=== PATIENT | female | born 1975 | race African-American/Black ===

== ENCOUNTER 2017-03-02 06:01 | Emergency (ER) | payer SELFPAY ==
[2017-03-02 06:06] VITALS: BMI 32.5
[2017-03-02] MEDS ORDERED: CATAPRES TAB 0.2 MG PO ONE (06:23)
[2017-03-02] MEDS ORDERED: CATAPRES TAB 0.2 MG ONE (06:26)
[2017-03-02] MEDS ORDERED: NEO SYNEPHRINE ENOSTRIL ONE (06:29)
[2017-03-02] MEDS ORDERED: AFRIN NASAL SPRAY ONE (06:29)
--- NOTE | 2017-03-02 07:14 | DR.GENAD ---
HPI - PCP Primary Care Physician: khanna newton - HPI Comment HPI Comment: NOSE BLEED FOR FEW HOURS NOW AND IS NOT STOPPING. SHE TOOK HER BP MED WHEN BLEEDING STARTED BP WA ELEVATED. BP HIGH IN ED NOW. - Complaint/Symptoms Chief Complaint Doctors Comments: BILATERAL NOSE BLEED, ELEVATED BP. Chief Complaint:: patient stated that her nose started bleeding around 4 hours ago and wont stop. she stated she took her bp meds around 5 hours ago. 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 - Family History History of Family Medical Conditions: Yes Family Medical History: Cancer, Heart Failure, Hypertension - Social History Does patient currently use any type of tobacco product: No Have you used tobacco products in the last 12 months: No Type of Tobacco Use: None Does any household member use tobacco: No Alcohol Use: None Do you use any recreational Drugs:: No Lives With: Family Lives Where: Home - infectious screening In the last 2 months have you had wt loss of >10#?: NO Have you had fever, night sweats or hemotysis?: No Have you traveled outside the country in the last 6 months?: No Isolation: Standard ROS - Review of Systems Constitutional: No Symptoms Reported. negative: Chills, Fever, Weakness, Fatigue Eyes: No Symptoms Reported. negative: Eye Pain, Discharge ENTM: Epistaxis (BILATERAL), Nose Congestion (SLIGHT CONGESTION.BLOOG COMING OUT OF MOUTH.). negative: Ear Pain Respiratoy: negative: Short of Breath, Wheezing, Hemoptysis Cardiovascular: No Symptoms Reported Gastrointestinal/Abdominal: Nausea, Vomiting Genitourinary: No Symptoms Reported Neurological: No Symptoms Reported Musculoskeletal: No Symptoms Reported Integumentary: No Symptoms Reported Hematologic/Lymphatic: No Symptoms Reported Endocrine: No Symptoms Reported All Other Systems: Reviewed and Negative PE - Vital Signs Vitals: Temperature 98.6 F Pulse Rate [Right Brachial] 80 Pulse Rate 94 Respiratory Rate 16 Blood Pressure [Right Arm] 141/84 Blood Pressure [Left Arm] 185/110 Blood Pressure 213/147 O2 Sat by Pulse Oximetry 100 - General Limitations: No Limitations General Appearance: Alert - Head Head Exam: Normal Inspection - Eyes Eye exam: Normal Appearance - ENT ENT Exam: Normal Oropharynx (BLOOD IN MOUTH WITH CLOTS.), Normal External Ear Exam External Ear Exam: Normal External Inspection TM/Canal Exam: Bilateral Normal Nose Exam: Normal Nose Exam, Other (NASAL MUSOSAL NOT INFLAME.). negative: Sinus Tenderness, Nasal Deviation, Septal Hematoma, Laceration, Abrasion Mouth Exam: Normal Inspection Throat Exam: Normal Inspection - Neck Neck Exam: Trachea Midline. negative: Tenderness, Meningismus, Lymphadenopathy - Chest Chest Inspection: Symmetric Chest Wall Rise - Respiratory Respiratory Exam: Normal Lung Sounds Bilat Respiratory Exam: Bilateral Clear to Auscultation - Cardiovascular Cardiovascular Exam: Regular Rate, Normal Rhythm, Normal Heart Sounds - Abdominal Exam Abdominal Exam: Normal Inspection, Normal Bowel Sounds. negative: Tenderness - Extremities Extremities Exam: Normal Inspection - Back Back Exam: Normal Inspection - Neurologic Neurological Exam: Alert - Psychiatric Psychiatric Exam: Normal Affect, Normal Mood - Skin Skin Exam: Normal Color MDM - Differential Diagnosis Differential Diagnosis: EPISTAXIS, HYPERTENSION. Course - Treatment Treatment: SEE ORDERS. NEOSENEPHRIN DROPS BOTH NOSTRIL. BLEEDING IMPROVE. BP DECREASING WITH CLONIDINE 0.2MG. - Reevaluation 1st: Improved - Education/Counseling Education/Counseling: Patient, Education Educated On: Treatment, Diagnosis, Needs for Follow Up ROR - Labs Reviewed Laboratory Results Reviewed?: Yes Result Diagrams: 03/02/17 07:30 03/02/17 07:30 Laboratory: WBC 5.0 X10^3/uL (3.6-10.0) 03/02/17 07:30 RBC 4.83 X10^6/uL (3.5-5.4) 03/02/17 07:30 Hgb 11.3 g/dL (12.0-16.0) L 03/02/17 07:30 Hct 34.2 % (36.0-47.0) L 03/02/17 07:30 MCV 70.8 fL (80.0-100.0) L 03/02/17 07:30 MCH 23.3 pg (27.0-34.0) L 03/02/17 07:30 MCHC 33.0 g/dL (33.0-35.0) 03/02/17 07:30 RDW 17.8 % (11.6-16.5) H 03/02/17 07:30 Plt Count 274 X10^3/uL (150.0-450.0) 03/02/17 07:30 Plt Count Comment Adequate (ADEQUATE) 03/02/17 07:30 MPV 8.4 fL (7.4-11.0) 03/02/17 07:30 Neut % 59.8 % (42.0-75.0) 03/02/17 07:30 Lymph % 28.6 % (21.0-51.0) 03/02/17 07:30 Twiggs % 8.6 % (0.0-13.0) 03/02/17 07:30 Eos % 2.2 % (0.9-2.9) 03/02/17 07:30 Baso % 0.8 % (0.2-1.0) 03/02/17 07:30 Neut # 3.0 x10^3/uL (2.2-4.8) 03/02/17 07:30 Lymph # 1.4 X10^3/uL (1.3-2.9) 03/02/17 07:30 Twiggs # 0.4 x10^3/uL (0.3-0.8) 03/02/17 07:30 Eos # 0.1 x10^3/uL (0.0-0.2) 03/02/17 07:30 Baso # 0.0 X10^3/uL (0.0-0.1) 03/02/17 07:30 Absolute Nucleated RBC 0.0 /100WBC 03/02/17 07:30 Plt Morphology Comment Normal (NORMAL) 03/02/17 07:30 RBC Morphology Abnormal (NORMAL) A 03/02/17 07:30 Hypochromasia 1+ A 03/02/17 07:30 Anisocytosis Slight A 03/02/17 07:30 Microcytosis Slight A 03/02/17 07:30 INR Target Range - 03/02/17 07:30 INR 1.02 (0.8-1.3) 03/02/17 07:30 PTT 31.5 SECONDS (22.9-36.5) 03/02/17 07:30 PTT Comment - 03/02/17 07:30 Sodium 141 mmol/L (136-145) 03/02/17 07:30 Corrected Sodium TNP 03/02/17 07:30 Potassium 4.2 mmol/L (3.5-5.1) 03/02/17 07:30 Chloride 107 mmol/L (98-107) 03/02/17 07:30 Carbon Dioxide 27.1 mmol/L (21-32) 03/02/17 07:30 BUN 32 mg/dL (7-18) H 03/02/17 07:30 Creatinine 1.36 mg/dL (0.55-1.02) H 03/02/17 07:30 Est GFR (MDRD) Af Amer 55 (>60) L 03/02/17 07:30 Est GFR (MDRD) Non-Af 46 (>60) L 03/02/17 07:30 Glucose 106 mg/dL (65-99) H 03/02/17 07:30 Calcium 8.6 mg/dL (8.5-10.1) 03/02/17 07:30 Corrected Calcium 9.2 mg/dL (8.5-10.1) 03/02/17 07:30 Total Bilirubin 0.60 mg/dL (0.2-1.0) 03/02/17 07:30 AST 16 Units/L (15-37) 03/02/17 07:30 ALT 20 Units/L (12-78) 03/02/17 07:30 Alkaline Phosphatase 85 Units/L (46-116) 03/02/17 07:30 Total Protein 7.7 g/dL (6.4-8.2) 03/02/17 07:30 Albumin 3.3 g/dL (3.4-5.0) L 03/02/17 07:30 Globulin 4.4 g/dL (2.5-4.5) 03/02/17 07:30 Albumin/Globulin Ratio 0.8 Ratio (1.1-2.1) L 03/02/17 07:30 - Diagnosis Discharge Problem: Epistaxis Hypertension Qualifiers: Hypertension type: essential hypertension Qualified Code(s): I10 - Essential ( primary) hypertension - Discharge Plan Disposition: 01 HOME, SELF-CARE Condition: Stable Prescriptions: Clonidine HCl [CATAPRES 0.1 MG TAB *] 0.1 mg PO DAILY PRN #30 tab PRN Reason: - Follow ups/Referrals Follow ups/Referrals: NFD,None [Primary Care Provider] - 2 days - Instructions Instructions: Nosebleed, [id number], Hypertension Additional Instructions: RETURN TO ED IF WORSE. SEE ENT THIS WEEK.
[2017-03-02 07:46] LABS: BASOPHILS % (AUTO) 0.8 % (0.2-1.0); EOSINOPHILS # (AUTO) 0.1 x10^3/uL (0.0-0.2); EOSINOPHILS % (AUTO) 2.2 % (0.9-2.9); HEMATOCRIT 34.2 % (36.0-47.0); HEMOGLOBIN 11.3 g/dL (12.0-16.0); LYMPHOCYTES # (AUTO) 1.4 X10^3/uL (1.3-2.9); LYMPHOCYTES % (AUTO) 28.6 % (21.0-51.0); MEAN CORPUSCULAR HEMOGLOBIN 23.3 pg (27.0-34.0); MEAN CORPUSCULAR VOLUME 70.8 fL (80.0-100.0); MEAN PLATELET VOLUME 8.4 fL (7.4-11.0); MONOCYTES # (AUTO) 0.4 x10^3/uL (0.3-0.8); MONOCYTES % (AUTO) 8.6 % (0.0-13.0); NEUTROPHILS % (AUTO) 59.8 % (42.0-75.0); PLATELET COUNT 274 X10^3/uL (150.0-450.0); RED BLOOD COUNT 4.83 X10^6/uL (3.5-5.4); RED CELL DISTRIBUTION WIDTH 17.8 % (11.6-16.5)
[2017-03-02 07:52] VITALS: BP 141/84
[2017-03-02 07:54] LABS: ALANINE AMINOTRANSFERASE 20 Units/L (12-78); ALBUMIN 3.3 g/dL (3.4-5.0); ALKALINE PHOSPHATASE 85 Units/L (46-116); ANISOCYTOSIS SLIGHT; ASPARTATE AMINO TRANSFERASE 16 Units/L (15-37); BLOOD UREA NITROGEN 32 mg/dL (7-18); CALCIUM 8.6 mg/dL (8.5-10.1); CARBON DIOXIDE 27.1 mmol/L (21-32); CHLORIDE 107 mmol/L (98-107); COR CA(FOR HYPOALB) 9.2 mg/dL (8.5-10.1); CREATININE 1.36 mg/dL (0.55-1.02); GLUCOSE 106 mg/dL (65-99); HYPOCHROMASIA 1+; MICROCYTOSIS SLIGHT; PLATELET MORPHOLOGY COMMENT NORMAL (NORMAL); SODIUM 141 mmol/L (136-145); TOTAL PROTEIN 7.7 g/dL (6.4-8.2); eGFR BLACK RACES 55 (>60); eGFR NON BLACK RACES 46 (>60)
== END 2017-03-02 08:29 | disposition home or self-care (01) ==
LOC: ER 06:01
DX: R04.0 Epistaxis (principal); I10 Essential (primary) hypertension
CPT/HCPCS: 36415; 80053; 85025; 85610; 85730; 99282

== ENCOUNTER 2017-10-10 09:00 | Emergency (ER) | payer OTHER ==
[2017-10-10 09:08] VITALS: BMI 32.5
[2017-10-10] MEDS ORDERED: CATAPRES TAB 0.2 MG PO ONE (09:22)
--- NOTE | 2017-10-10 09:30 | DR.URIAD ---
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 Low grade fever. Pt found to have high BP during triage, out of HCTZ x 1 month. Known HTN Chief Complaint:: PT C/O SORE THOROAT AND COUGHING AND CHILLS THAT STARTED ON YESTERDAY ..... PT STATES " I JUST DON'T FELL WELL". PT C/O THAT HER THROAT FEELS RAW.. 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 - Family History History of Family Medical Conditions: No Family Medical History: Cancer, Heart Failure, Hypertension - Social History Does patient currently use any type of tobacco product: No Have you used tobacco products in the last 12 months: No Type of Tobacco Use: None Does any household member use tobacco: No Alcohol Use: None Do you use any recreational Drugs:: No Lives With: Family Lives Where: Home - infectious screening In the last 2 months have you had wt loss of >10#?: NO Have you had fever, night sweats or hemotysis?: No Have you traveled outside the country in the last 6 months?: No Isolation: Standard ROS - Review of Systems Constitutional: Chills, Fever, Malaise, Fatigue Eyes: No Symptoms Reported ENTM: Nose Congestion, Throat Pain Respiratoy: See HPI, Non-Productive Cough Cardiovascular: negative: Chest Pain, Edema, Palpitations Gastrointestinal/Abdominal: negative: Abdominal Pain, Constipation, Diarrhea Genitourinary: No Symptoms Reported Neurological: Headache Musculoskeletal: Joint Pain (diffuse aches and pains), Muscle Pain Hematologic/Lymphatic: No Symptoms Reported Endocrine: No Symptoms Reported Psychiatric: No Symptoms Reported All Other Systems: Reviewed and Negative PE - Vital Signs Vitals: Temperature 97.2 F Pulse Rate [Left Brachial] 75 Pulse Rate 80 Respiratory Rate 18 Blood Pressure [Right Arm] 188/114 Blood Pressure [Left Arm] 187/116 Blood Pressure 232/120 O2 Sat by Pulse Oximetry 97 - General Limitations: No Limitations General Appearance: In No Apparent Distress - Head Head Exam: Normal Inspection - Eyes Eye exam: Normal Appearance. negative: Conjunctival Injection - ENT ENT Exam: Mucous Membranes Moist, Other (frontal and max sinuses +TTP) External Ear Exam: Normal External Inspection Nose Exam: Normal Nose Exam Throat Exam: Tonsillar Erythema. negative: Tonsillar Exudate - Neck Neck Exam: Normal Inspection, Full ROM, Trachea Midline. negative: Lymphadenopathy - Chest Chest Inspection: Normal Inspection, Symmetric Chest Wall Rise - Respiratory Respiratory Exam: Normal Lung Sounds Bilat Respiratory Exam: Bilateral Clear to Auscultation - Cardiovascular Cardiovascular Exam: Regular Rate, Normal Rhythm - Abdominal Exam Abdominal Exam: Normal Bowel Sounds, Soft. negative: Tenderness - Extremeties Extremities Exam: Normal Inspection, Full ROM, Normal Capillary Refill. negative: Edema - Neurologic Neurological Exam: Alert, Oriented X3 - Psychiatric Psychiatric Exam: Normal Affect, Normal Mood - Skin Skin Exam: Warm, Dry ROR - Labs Reviewed Laboratory: Influenza Type A (PCR) Negative (NEGATIVE) 10/10/17 09:49 Influenza Type B (PCR) Negative (NEGATIVE) 10/10/17 09:49 Streptococcus Screen Negative (NEGATIVE) 10/10/17 09:49 - Other Results Comments: flu and strep both negative - Diagnosis Discharge Problem: Uncontrolled hypertension, Sinusitis, acute - Discharge Plan Disposition: 01 HOME, SELF-CARE Condition: Stable - Follow ups/Referrals Follow ups/Referrals: NFD,None [Primary Care Provider] - 3 days - Instructions Instructions: Hypertension, [id number] Additional Instructions: follow up regular doctor in 1-2 days for BP recheck
[2017-10-10] MEDS ORDERED: CATAPRES TAB 0.2 MG ONE (09:41)
[2017-10-10] MEDS ORDERED: PROCARDIA XL PO ONE (11:05)
[2017-10-10 13:25] VITALS: BP 187/116
== END 2017-10-10 13:25 | disposition home or self-care (01) ==
LOC: ER 09:18
DX: I10 Essential (primary) hypertension (principal)
CPT/HCPCS: 87070; 87502; 87880; 99282

== ENCOUNTER 2021-10-25 12:58 | Observation (INO) ==
[2021-10-25] MEDS ORDERED: CATAPRES TAB 0.2 MG PO ONE (13:28)
--- NOTE | 2021-10-25 13:29 | DR.URIAD ---
HPI Time Seen Time Seen by Provider: 10/25/21 13:16 Complaint Chief Complaint Doctors Comments: PATIENT IS 46YR OLD FEMALE IN ER WITH RIGHT SIDED CHEST PAIN AND COUGH SINCE LAST NIGHT. PAIN IS SHARP, 7/10 RADIATING TO THE BACK. PAIN ASSOCIATED WITH SOB. NO FEVER, VOMITING, DIARRHEA OR DYSURIA. WORSE TODAY. BP ELEVATED. DENIES HEADACHE OR DIZZINESS. Chief Complaint:: RIGHT SIDED CHEST PAIN WITH COUGH SINCE LAST NIGHT. BP MARKEDLY ELEVATED IN TRIAGE. COVID-19 Coronavirus risk:travel/contact w/high risk person: No Has patient experienced Coronavirus symptoms: Yes Coronavirus symptoms experienced: Coughing Reviewed Nurses Notes Reviewed: Yes Source History Provided: Patient Mode of Arrival Mode of Arrival: Ambulatory Context Recent Treated Infections: None History of Respiratory: None Quality Quality of Cough: Productive and Yellow Rhinorrhea: None Shortness of Breath: Moderate Associated Signs and Symptoms Other Signs and Symptoms: Accessory Muscle Use, Cough, Nasal Symptoms, Shortness of Breath, URI and Wheeze PMH PMH Past Medical History: Hypertension and Hypothyroidism Past Surgical History: Yes 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 Family History Family Medical History: Cancer, Heart Failure and Hypertension Social History Do you use any recreational Drugs:: No Travel Risk Coronavirus risk:travel/contact w/high risk person: No Has patient experienced Coronavirus symptoms: Yes Coronavirus symptoms experienced: Coughing ROS Review of Systems Constitutional: See HPI, Weakness and Fatigue; negative Fever Eyes: No Symptoms Reported and See HPI ENTM: See HPI and Nose Congestion; negative Nose Discharge Respiratoy: See HPI, Productive Cough (GRE[place] SPUTUM.), Short of Breath and Wheezing Cardiovascular: See HPI, Chest Pain and Edema Gastrointestinal/Abdominal: No Symptoms Reported and See HPI; negative Abdominal Pain, Diarrhea and Vomiting Genitourinary: No Symptoms Reported and See HPI; negative Dysuria, Frequency and Hematuria Neurological: See HPI and Weakness; negative Headache and Dizziness Musculoskeletal: No Symptoms Reported and See HPI; negative Back Pain and Muscle Pain Integumentary: No Symptoms Reported and See HPI; negative Rash and Juandice Hematologic/Lymphatic: No Symptoms Reported and See HPI; negative Easy Bleeding and Easy Bruising Endocrine: No Symptoms Reported and See HPI; negative Increased Thirst and Increased Urine Psychiatric: No Symptoms Reported and See HPI All Other Systems: Reviewed and Negative PE Vital Signs Vitals: Temperature 98.7 F Pulse Rate [Right Radial] 87 Pulse Rate 93 Respiratory Rate 20 Blood Pressure [Right Arm] 222/131 Blood Pressure [Left Arm] 158/90 Blood Pressure 204/130 O2 Sat by Pulse Oximetry 99 General Limitations: No Limitations General Appearance: Alert and In Distress Head Head Exam: Normal Inspection Eyes Eye exam: Normal Appearance; negative Scleral Icterus and Conjunctival Injection ENT ENT Exam: Normal Exam, Normal Oropharynx, Normal External Ear Exam and TM's Normal Bilaterally External Ear Exam: Normal External Inspection; negative Mastoid Tenderness TM/Canal Exam: Bilateral: Normal Nose Exam: Normal Nose Exam Mouth Exam: Normal Inspection; negative Lip Swelling and Tongue Swelling Throat Exam: Normal Inspection; negative Tonsillar Erythema, Tonsillomegaly and Tonsillar Exudate Neck Neck Exam: Normal Inspection and Trachea Midline; negative Tenderness Chest Chest Inspection: Normal Inspection and Symmetric Chest Wall Rise; negative Tenderness Respiratory Respiratory Exam: Normal Lung Sounds Bilat and Respiratory Distress; negative Accessory Muscle Use and Chest Wall Tenderness Respiratory Exam: Bilateral: Wheezing and Bilateral: Rhonchi and Lower: Wheezing and Lower: Rhonchi Cardiovascular Cardiovascular Exam: Regular Rate, Normal Rhythm and Normal Heart Sounds; negative Systolic Murmur and Diastolic Murmur Abdominal Exam Abdominal Exam: Normal Inspection, Normal Bowel Sounds and Soft; negative Tenderness Extremeties Extremities Exam: Edema; negative Tenderness Back Back Exam: Normal Inspection; negative (R) CVA Tenderness and (L) CVA Tenderness Neurologic Neurological Exam: Alert and Oriented X3; negative Motor Sensory Deficit Psychiatric Psychiatric Exam: Normal Affect and Normal Mood Skin Skin Exam: Warm, Dry, Intact and Normal Color MDM Differential Diagnosis Differential Diagnosis: Pneumonia (CHF, SC, BRONCHITIS, HYPERTENSIVE EMERGENCY.) COURSE Treatment Treatment: SEE ORDERS. CLONIDINE 0.2MG PO IN ER. BP STILL ELEVATED. LASIX 40MG IV. PATIENT DIURESING. HYDRALAZINE 10MG IV, BP DECREASING. PATIENT STILL SOB. Reevaluation 1st: Improved 2nd: Improved Consultation Consultation Comments: DISCUSSED PATIENT WITH DR. TRAVIS. HE WILL ADMIT PATIENT. Education/Counseling Education/Counseling: Patient Educated On: Diagnosis ROR Labs Reviewed Laboratory Results Reviewed?: Yes Result Diagrams: 10/27/21 05:19 10/27/21 05:19 Laboratory: WBC 6.3 X10^3/uL (3.6-10.0) 10/25/21 13:38 RBC 4.23 X10^6/uL (3.5-5.4) 10/25/21 13:38 Hgb 9.8 g/dL (12.0-16.0) L 10/25/21 13:38 Hct 29.9 % (36.0-47.0) L 10/25/21 13:38 MCV 70.6 fL (80.0-100.0) L 10/25/21 13:38 MCH 23.3 pg (27.0-34.0) L 10/25/21 13:38 MCHC 32.9 g/dL (33.0-35.0) L 10/25/21 13:38 RDW 19.6 % (11.6-16.5) H 10/25/21 13:38 Plt Count 310 X10^3/uL (150.0-450.0) 10/25/21 13:38 Plt Count Comment Adequate (ADEQUATE) 10/25/21 13:38 MPV 8.2 fL (7.4-11.0) 10/25/21 13:38 Neut % (Auto) 70.7 % (42.0-75.0) 10/25/21 13:38 Lymph % (Auto) 19.8 % (21.0-51.0) L 10/25/21 13:38 Summers % (Auto) 5.5 % (0.0-13.0) 10/25/21 13:38 Eos % (Auto) 3.7 % (0.9-2.9) H 10/25/21 13:38 Baso % (Auto) 0.3 % (0.2-1.0) 10/25/21 13:38 Neut # (Auto) 4.5 x10^3/uL (2.2-4.8) 10/25/21 13:38 Lymph # (Auto) 1.2 X10^3/uL (1.3-2.9) L 10/25/21 13:38 Summers # (Auto) 0.3 x10^3/uL (0.3-0.8) 10/25/21 13:38 Eos # (Auto) 0.2 x10^3/uL (0.0-0.2) 10/25/21 13:38 Baso # (Auto) 0.0 X10^3/uL (0.0-0.1) 10/25/21 13:38 Absolute Nucleated RBC 0.1 /100WBC 10/25/21 13:38 Plt Morphology Comment Normal (NORMAL) 10/25/21 13:38 RBC Morphology Abnormal (NORMAL) A 10/25/21 13:38 Hypochromasia 1+ A 10/25/21 13:38 Anisocytosis Slight A 10/25/21 13:38 Microcytosis Slight A 10/25/21 13:38 Sodium 138 mmol/L (136-145) 10/25/21 13:38 Corrected Sodium TNP 10/25/21 13:38 Potassium 3.4 mmol/L (3.5-5.1) L 10/25/21 13:38 Chloride 104 mmol/L (98-107) 10/25/21 13:38 Carbon Dioxide 29.3 mmol/L (21-32) 10/25/21 13:38 BUN 25 mg/dL (7-18) H 10/25/21 13:38 Creatinine 1.72 mg/dL (0.55-1.02) H 10/25/21 13:38 Est GFR (MDRD) Af Amer 41 (>60) L 10/25/21 13:38 Est GFR (MDRD) Non-Af 34 (>60) L 10/25/21 13:38 Glucose 104 mg/dL (65-99) H 10/25/21 13:38 Calcium 8.7 mg/dL (8.5-10.1) 10/25/21 13:38 Corrected Calcium TNP 10/25/21 13:38 Total Bilirubin 0.90 mg/dL (0.2-1.0) 10/25/21 13:38 AST 28 Units/L (15-37) 10/25/21 13:38 ALT 69 Units/L (12-78) 10/25/21 13:38 Alkaline Phosphatase 103 Units/L (46-116) 10/25/21 13:38 Creatine Kinase 70 Units/L (26-192) 10/25/21 13:38 CK-MB (CK-2) 1.4 ng/mL (0-4.0) 10/25/21 13:38 CK/CKMB % Calc 2.0 % (<4) 10/25/21 13:38 Troponin I High Sens 46.7 ng/L (4.0-60.0) 10/25/21 13:38 B-Natriuretic Peptide 737 pg/mL (0-79) H* 10/25/21 13:38 Total Protein 7.3 g/dL (6.4-8.2) 10/25/21 13:38 Albumin 3.4 g/dL (3.4-5.0) 10/25/21 13:38 Globulin 3.9 g/dL (2.5-4.5) 10/25/21 13:38 Albumin/Globulin Ratio 0.9 Ratio (1.1-2.1) L 10/25/21 13:38 SARS CoV-2 RNA Rapid MAVERICK Negative (NEGATIVE) 10/25/21 19:22 XRAY XRAY Interpreted by: Radiologist (REPORT NOTED AND DISCUSSED WITH PATIENT.) and Self EKG Rate: 90 Embarrass: Normal Rhythm: PACs Block: None Hypertrophy: LAE ST: Ischemia Opioid Opioid Risk Tool Age (Johnny box if 16-45): No Total: 0 Total Score Risk Category: Low Risk Copyright: Hollis [employer] predicting aberrant behaviors Diagnosis Discharge Problem: Hypertension Qualifiers: Hypertension type: primary hypertension Qualified Code(s): I10 - Essential (primary) hypertension CHF (congestive heart failure) Qualifiers: Heart failure type: combined systolic and diastolic Heart failure chronicity: unspecified Qualified Code(s): I50.40 - Unspecified combined systolic (congestive) and diastolic (congestive) heart failure Chest pain Qualifiers: Chest pain type: intercostal pain Qualified Code(s): R07.82 - Intercostal pain
[2021-10-25] MEDS ORDERED: CATAPRES TAB 0.2 MG ONE (13:41)
[2021-10-25 13:46] LABS: BASOPHILS % (AUTO) 0.3 % (0.2-1.0); EOSINOPHILS # (AUTO) 0.2 x10^3/uL (0.0-0.2); EOSINOPHILS % (AUTO) 3.7 % (0.9-2.9); HEMATOCRIT 29.9 % (36.0-47.0); HEMOGLOBIN 9.8 g/dL (12.0-16.0); LYMPHOCYTES # (AUTO) 1.2 X10^3/uL (1.3-2.9); LYMPHOCYTES % (AUTO) 19.8 % (21.0-51.0); MEAN CORPUSCULAR HEMOGLOBIN 23.3 pg (27.0-34.0); MEAN CORPUSCULAR HGB CONC 32.9 g/dL (33.0-35.0); MEAN CORPUSCULAR VOLUME 70.6 fL (80.0-100.0); MEAN PLATELET VOLUME 8.2 fL (7.4-11.0); MONOCYTES # (AUTO) 0.3 x10^3/uL (0.3-0.8); MONOCYTES % (AUTO) 5.5 % (0.0-13.0); NEUTROPHILS # (AUTO) 4.5 x10^3/uL (2.2-4.8); NEUTROPHILS % (AUTO) 70.7 % (42.0-75.0); RED BLOOD COUNT 4.23 X10^6/uL (3.5-5.4); RED CELL DISTRIBUTION WIDTH 19.6 % (11.6-16.5); WHITE BLOOD COUNT 6.3 X10^3/uL (3.6-10.0)
[2021-10-25 14:14] LABS: ALANINE AMINOTRANSFERASE 69 Units/L (12-78); ALBUMIN 3.4 g/dL (3.4-5.0); ALKALINE PHOSPHATASE 103 Units/L (46-116); ASPARTATE AMINO TRANSFERASE 28 Units/L (15-37); BLOOD UREA NITROGEN 25 mg/dL (7-18); CALCIUM 8.7 mg/dL (8.5-10.1); CARBON DIOXIDE 29.3 mmol/L (21-32); CHLORIDE 104 mmol/L (98-107); CREATINE KINASE 70 Units/L (26-192); CREATINE KINASE MB 1.4 ng/mL (0-4.0); CREATININE 1.72 mg/dL (0.55-1.02); SODIUM 138 mmol/L (136-145); TOTAL PROTEIN 7.3 g/dL (6.4-8.2); eGFR NON BLACK RACES 34 (>60)
[2021-10-25 14:18] LABS: PLATELET MORPHOLOGY COMMENT NORMAL (NORMAL)
[2021-10-25 14:19] LABS: ANISOCYTOSIS SLIGHT; HYPOCHROMASIA 1+; MICROCYTOSIS SLIGHT
[2021-10-25] MEDS ORDERED: LASIX IVP ONE ×2 (14:36→15:28)
[2021-10-25] MEDS ORDERED: KLOR-CON PO ONE (14:37)
[2021-10-25] MEDS ORDERED: K-DUR TAB 20 MEQ PO ONE (15:29)
--- NOTE | 2021-10-25 15:46 | RAD ---
Chest AP portableIndication: Chest painFINDINGSThere is no pneumothorax or effusion. There is cardiomegaly. Monitor leads obscure minimal detail.IMPRESSIONCardiomegaly with few increased interstitial markings. Pulmonary venous hypertension noted. Cardiac dysfunction not excluded, without severe edema.Electronically signed by: POLA ARIAS (Oct 25, 2021 15:45:11)
[2021-10-25] MEDS ORDERED: APRESOLINE INJ 20 MG VIAL IVP ONE ×2 (16:37→18:28)
[2021-10-25] MEDS ORDERED: APRESOLINE INJ 20 MG VIAL ONE ×2 (17:02→19:13)
[2021-10-25] MEDS ORDERED: TORADOL 30 MG VIAL IVP ONE (19:11)
[2021-10-25] MEDS ORDERED: TORADOL 30 MG VIAL ONE (19:13)
[2021-10-25] MEDS: APRESOLINE INJ 20 MG VIAL IVP PRN (22:39)
[2021-10-25 23:11] VITALS: BMI 39.4
[2021-10-25 23:26] LABS: BILIRUBIN,URINE NEGATIVE (NEGATIVE); BLOOD/HEMOGLOBIN,URINE NEGATIVE (NEGATIVE); GLUCOSE, URINE NEGATIVE (NEGATIVE); KETONES,URINE NEGATIVE (NEGATIVE); LEUKOCYTE ESTERASE ,URINE NEGATIVE (NEGATIVE); NITRITES,URINE NEGATIVE (NEGATIVE); PH,URINE 6.5 (5.0 - 8.0); PROTEIN,URINE 2+ (NEGATIVE); UROBILINOGEN,URINE NORMAL (NORMAL)
[2021-10-25] MEDS ORDERED: CATAPRES-TTS-3 TD SCH (23:45)
[2021-10-25 23:48] LABS: APPEARANCE,URINE CLEAR (CLEAR); COLOR,URINE STRAW (YELLOW)
[2021-10-25] MEDS ORDERED: CATAPRES-TTS-3 TD ONE (23:48)
[2021-10-25 23:51] LABS: BACTERIA,URINE NEGATIVE /HPF (NEGATIVE); RBC,URINE NONE SEEN /HPF (0-3); SQUAMOUS EPITHELIAL CELL,UR MODERATE /HPF (NEGATIVE)
[2021-10-26 00:54] LABS: CKMB % 1.9 % (<4); CREATINE KINASE MB 1.3 ng/mL (0-4.0)
[2021-10-26] MEDS ORDERED: TYLENOL 325 MG TAB PO PRN (04:01)
[2021-10-26 06:04] LABS: EOSINOPHILS # (AUTO) 0.2 x10^3/uL (0.0-0.2); EOSINOPHILS % (AUTO) 2.7 % (0.9-2.9); HEMOGLOBIN 10.2 g/dL (12.0-16.0)
[2021-10-26] MEDS: APRESOLINE INJ 20 MG VIAL IVP PRN ×3 (06:10→22:50)
[2021-10-26 06:16] LABS: BASOPHILS # (AUTO) 0.1 X10^3/uL (0.0-0.1); HEMATOCRIT 31.4 % (36.0-47.0); LYMPHOCYTES # (AUTO) 1.7 X10^3/uL (1.3-2.9); LYMPHOCYTES % (AUTO) 25.6 % (21.0-51.0); MEAN CORPUSCULAR HEMOGLOBIN 23.2 pg (27.0-34.0); MEAN CORPUSCULAR HGB CONC 32.6 g/dL (33.0-35.0); MEAN CORPUSCULAR VOLUME 71.2 fL (80.0-100.0); MEAN PLATELET VOLUME 8.8 fL (7.4-11.0); MONOCYTES # (AUTO) 0.6 x10^3/uL (0.3-0.8); MONOCYTES % (AUTO) 8.8 % (0.0-13.0); NEUTROPHILS # (AUTO) 4.2 x10^3/uL (2.2-4.8); NEUTROPHILS % (AUTO) 61.9 % (42.0-75.0); RED BLOOD COUNT 4.41 X10^6/uL (3.5-5.4); RED CELL DISTRIBUTION WIDTH 19.7 % (11.6-16.5); WHITE BLOOD COUNT 6.8 X10^3/uL (3.6-10.0)
[2021-10-26 06:43] LABS: ALANINE AMINOTRANSFERASE 64 Units/L (12-78); ALBUMIN 3.4 g/dL (3.4-5.0); ALKALINE PHOSPHATASE 102 Units/L (46-116); ASPARTATE AMINO TRANSFERASE 30 Units/L (15-37); BLOOD UREA NITROGEN 24 mg/dL (7-18); CALCIUM 8.4 mg/dL (8.5-10.1); CARBON DIOXIDE 24.7 mmol/L (21-32); CHLORIDE 103 mmol/L (98-107); CKMB % 2.5 % (<4); CREATINE KINASE 73 Units/L (26-192); CREATINE KINASE MB 1.8 ng/mL (0-4.0); MAGNESIUM 2.2 mg/dL (1.7-2.9); SODIUM 137 mmol/L (136-145); TOTAL PROTEIN 7.4 g/dL (6.4-8.2); eGFR NON BLACK RACES 40 (>60)
[2021-10-26 07:03] LABS: ANISOCYTOSIS SLIGHT; HYPOCHROMASIA 1+; MICROCYTOSIS SLIGHT; PLATELET MORPHOLOGY COMMENT NORMAL (NORMAL); TARGET CELLS SLIGHT
[2021-10-26] MEDS: K-DUR TAB 20 MEQ PO SCH ×2 (09:12→21:05)
[2021-10-26] MEDS: LASIX IVP SCH ×2 (09:12→17:28)
[2021-10-26] MEDS ORDERED: ZESTRIL TAB 10 MG PO SCH (10:00)
--- NOTE | 2021-10-26 10:05 | DR.H&P ---
H&P - History & Physical for Day of: H&P Date: 10/25/21 - Chief Complaint Chief Complaint: CHEST PAIN, COUGH, SOB, LOWER EXTREMITY SWELLING - History of Present Illness History of Present Illness: IS A 46 YEAR OLD BLACK FEMALE. SHE PRESENTED TO THE ER WITH COMPLAINTS OF RIGHT SIDED CHEST PAIN, COUGH, AND LOWER EXTREMITY PAIN/SWELLING. SHE DESCRIBES CHEST PAIN SHARP, INTERMITTENT, AND RATES IT A 7/10. PAIN DOES RADIATE TO THE BACK. THERE IS ALSO ASSOCIATED SHORTNESS OF BREATH. COUGH HAS BEEN PRODUCTIVE OF GREENISH COLORED SPUTUM. SHE ALSO ADMITS TO ELEVATED BLOOD PRESSURE. SHE DENIES HEADACHE, DIZZINESS, VOMITING, DIARRHEA, OR DYSURIA. ON EXAMINATION, PATIENT IS ALSO NOTED TO HAVE NASAL CONGESTION AND WHEEZING OF BILATERAL LUNG KWON TO AUSCULTATION. LOWER EXTREMITIES ARE NOTED WITH 1+ EDEMA. HER PMH INCLUDES HYPERTENSION, HYPOTHYROIDISM, CHOLECYSTECTOMY, AND TOPOGRAPHICAL ENGINEER SURGERY. DESPITE DX OF HTN AND HYPOTHYROIDISM, SHE DENIES TAKING ANY MEDICATIONS AT THIS TIME. ON ARRIVAL TO THE ER, VITALS WERE: 98.7-94-20-97%-222/137. LABS WERE OBTAINED. WBC 6.3, HGB 9.8, HCT 29.9, SODIUM 138, POTASSIUM 3.4, BUN 25, CREATININE 1.72, GLUCOSE 104, BNP 737, TOTAL PROTEIN 7.3, ALBUMIN 3.4. CARDIAC ENZYMES WERE WITHIN NORMAL LIMITS. EKG OBTAINED AND REVEALED: SINUS RHYTHM WITH HR 90. A CHEST XRAY WAS OBTAINED AND REVEALED: Cardiomegaly with few increased interstitial markings. Pulmonary venous hypertension noted. Cardiac dysfunction not excluded, without severe edema. IN THE ER, SHE WAS GIVEN CATAPRES 0.2MG PO X 1, LASIX 40MG IV X 1, KLOR-CON 20MG PO X 1, APRESOLINE 10MG IV X 1, TORADOL 30MG IV X 1. BLOOD PRESSURE REMAINED ELEVATED. A CATAPRES 0.3MG/HR TD PATCH WAS APPLIED. SHE WAS ADMITTED TO THE HOSPITAL FOR FURTHER EVALUATION AND TREATMENT OF HYPERTENSIVE EMERGENCY, CHF, CHEST PAIN, ACUTE BRONCHITIS. SHE WAS STARTED ON LASIX 40MG IV BID, CATAPRES 0.3MG/HR TD PATCH Q7D, K-DUR 20MG PO BID, APRESOLINE 10MG IV Q6H PRN, TYLENOL 650MG PO Q6H PRN. WE WILL OBTAIN AN ECHO, SERIAL CARDIAC ENZYMES AND EKGs, AND VENOUS DOPPLERS OF BLE TO RULE OUT DVT. OTHERWISE, WE PLAN TO FOLLOW UP WITH AM LABS AND COTNINUE TO MONITOR. HER BLOOD PRESSURE ON MORNING ROUNDS WAS 164/90. TIME SPENT ON CLINICAL ASSESSMENT, REVIEWING LABS AND REY GING, DECISION MAKING, AND DOCUMENTATION GREATER THAN 75 MINUTES. - Past Medical History Past Medical History: Hypertension, Hypothyroidism - Past Surgical History Surgical History: Cholecystectomy, TOPOGRAPHICAL ENGINEER Surgery - Family History Family Medical History: Diabetes Mellitus, PA, Hypertension - Social History Does patient currently use any type of tobacco product: No Have you used tobacco products in the last 12 months: No Type of Tobacco Use: None Alcohol Use: None Drug Use: None - Medications Home Medications: No Known Drug Allergies Allergy (Verified 10/25/21 13:05) CONTINUE taking the following medications NK 10/25/21 [History] - Review of Systems Constitutional: No Symptoms Reported Eyes: No Symptoms Reported ENT: No Symptoms Reported Respiratory: See HPI, Cough, Shortness of Breath, SOB with Excertion, Wheezing Cardiovascular: Chest Pain, Edema (LOWER EXTREMITY SWELLING ) Gastrointestinal: No Symptoms Reported Genitourinary: No Symptoms Reported Musculoskeletal: No Symptoms Reported Skin: No Symptoms Reported Neurological: No Symptoms Reported - Physical Exam Vital Signs: Temperature 97.8 F Pulse Rate [Right Radial] 100 Pulse Rate 93 Respiratory Rate 20 Blood Pressure [Right Arm] 164/90 Blood Pressure [Left Arm] 158/90 Blood Pressure 217/133 O2 Sat by Pulse Oximetry 96 Oriented: Normal Eyes: Normal Ear: Normal Nose: Normal Throat: Normal Respiratory: Rhonchi Throughout, Wheezes Throughout Cardiovascular: Edema (BLE 1+ EDEMA ) : Normal Auscultation: Bowel Sounds: Normal Palpation: Normal Tenderness: Normal Skin: Normal Musculoskeletal: Normal Psychiatric: Normal Mood Description: Calm Affect: Normal Speech Pattern: Clear - Assessment/Plan (1) CHF (congestive heart failure) Qualifiers: Heart failure type: combined systolic and diastolic Heart failure chronicity: unspecified Qualified Code(s): I50.40 - Unspecified combined systolic (congestive) and diastolic (congestive) heart failure Status: Acute Plan: ADMIT, LASIX 40MG IV BID, CATAPRES 0.3MG/HR TD PATCH Q7D, K-DUR 20MG PO BID, APRESOLINE 10MG IV Q6H PRN, TYLENOL 650MG PO Q6H PRN. OBTAIN CE & EKG, ECHO, AND VENOUS DOPPLERS (2) Hypertensive emergency Status: Acute (3) Chest pain Qualifiers: Chest pain type: unspecified Qualified Code(s): R07.9 - Chest pain, unspecified Status: Acute (4) Acute bronchitis Qualifiers: Bronchitis organism: unspecified organism Qualified Code(s): J20.9 - Acute bronchitis, unspecified Status: Acute (5) Swelling of lower extremity Status: Acute - Allergies Allergies/Adverse Reactions: Allergies Allergy/AdvReac Type Severity Reaction Status Date / Time No Known Drug Allergies Allergy Verified 10/25/21 13:05
--- NOTE | 2021-10-26 12:19 | VAS ---
HISTORY: [Extremity pain, swelling, and edema]Study: Bilateral lower extremity Doppler venous ultrasound.TECHNIQUE: Multiple christianson scale and color flow Doppler images of the deep venous system were obtained of the [right and left] lower extremity.FINDINGS: The deep venous system of the [right and left lower extremities were] evaluated from the level of the common femoral veins through the popliteal veins, bilaterally. Normal color flow and augmentation can be observed. In addition, normal compression is seen throughout the deep venous system. [No Roper's cyst is seen].IMPRESSION:1. Negative examination for DVT.Electronically signed by: SHAILA MORRIS III (Oct 26, 2021 12:17:38)
[2021-10-26 13:59] LABS: CKMB % 3.9 % (<4); CREATINE KINASE MB 2.9 ng/mL (0-4.0)
[2021-10-26] MEDS ORDERED: ASPIRIN PO SCH (15:00)
[2021-10-26] MEDS: APRESOLINE TAB 25 MG PO SCH ×2 (17:28→21:05)
[2021-10-26] MEDS: PLAVIX PO SCH (18:52)
[2021-10-26 19:21] LABS: CKMB % 3.5 % (<4); CREATINE KINASE MB 2.9 ng/mL (0-4.0)
[2021-10-26] MEDS ORDERED: ROBITUSSIN DM PO PRN (19:59)
[2021-10-27] LABS: CKMB % 2.9 % (<4); CREATINE KINASE MB 2.6 ng/mL (0-4.0)
[2021-10-27] MEDS: NORMODYNE INJ 20 MG VIAL IV PRN ×3 (02:28→03:38)
[2021-10-27 06:06] LABS: BASOPHILS # (AUTO) 0.1 X10^3/uL (0.0-0.1); BASOPHILS % (AUTO) 0.7 % (0.2-1.0); EOSINOPHILS # (AUTO) 0.1 x10^3/uL (0.0-0.2); EOSINOPHILS % (AUTO) 0.8 % (0.9-2.9); HEMATOCRIT 29.6 % (36.0-47.0); HEMOGLOBIN 9.7 g/dL (12.0-16.0); LYMPHOCYTES # (AUTO) 1.4 X10^3/uL (1.3-2.9); LYMPHOCYTES % (AUTO) 18.7 % (21.0-51.0); MEAN CORPUSCULAR HEMOGLOBIN 23.4 pg (27.0-34.0); MEAN CORPUSCULAR HGB CONC 32.8 g/dL (33.0-35.0); MEAN CORPUSCULAR VOLUME 71.3 fL (80.0-100.0); MEAN PLATELET VOLUME 8.5 fL (7.4-11.0); MONOCYTES # (AUTO) 0.5 x10^3/uL (0.3-0.8); MONOCYTES % (AUTO) 7.2 % (0.0-13.0); NEUTROPHILS # (AUTO) 5.5 x10^3/uL (2.2-4.8); NEUTROPHILS % (AUTO) 72.6 % (42.0-75.0); RED BLOOD COUNT 4.15 X10^6/uL (3.5-5.4); RED CELL DISTRIBUTION WIDTH 19.3 % (11.6-16.5); WHITE BLOOD COUNT 7.6 X10^3/uL (3.6-10.0)
[2021-10-27] MEDS: APRESOLINE TAB 25 MG PO SCH ×2 (06:32→14:34)
[2021-10-27 06:36] LABS: ALBUMIN 3.2 g/dL (3.4-5.0); CALCIUM 8.6 mg/dL (8.5-10.1); CARBON DIOXIDE 24.5 mmol/L (21-32); COR CA(FOR HYPOALB) 9.2 mg/dL (8.5-10.1); CREATININE 1.56 mg/dL (0.55-1.02); TOTAL PROTEIN 7.1 g/dL (6.4-8.2)
[2021-10-27 07:15] LABS: PLATELET MORPHOLOGY COMMENT NORMAL (NORMAL)
[2021-10-27 07:16] LABS: ANISOCYTOSIS SLIGHT; MICROCYTOSIS SLIGHT; OVALOCYTES PRESENT; TARGET CELLS PRESENT
--- NOTE | 2021-10-27 07:39 | RAD ---
HISTORYSOBSTUDYPortable AP chestCOMPARISONFebruary 2021FINDINGSStable cardiomegaly. The lungs are clear except for mild pulmonary vascular congestion none. There is no evidence for pneumonia, pulmonary edema or pleural effusion.IMPRESSIONNo change, see above.Electronically signed by: MAKEDA CASIANO (Oct 27, 2021 07:38:59)
[2021-10-27 08:44] LABS: CKMB % 3.6 % (<4); CREATINE KINASE MB 3.4 ng/mL (0-4.0)
[2021-10-27] MEDS ORDERED: TOPROL XL PO SCH (09:00)
[2021-10-27] MEDS ORDERED: HEPARIN SODIUM IN D5W 25,000 UNITS/500 ML BAG IV PRN (09:06)
[2021-10-27] MEDS: LASIX IVP SCH (10:01)
[2021-10-27] MEDS: K-DUR TAB 20 MEQ PO SCH (10:01)
[2021-10-27] MEDS: PLAVIX PO SCH (10:05)
--- NOTE | 2021-10-27 10:58 | PCM.PROG ---
Progress Note - Progress Note for Day of Date of Exam: 10/27/21 - Subjective Subjective: WAS ADMITTED FOR TREATMENT OF CHF, HTN, CHEST PAIN RULE OUT ACUTE IL, ACUTE BRONCHITIS, AND SWELLING OF THE LOWER EXTREMITIES. TODAY, SHE IS ALERT AND ORIENTED, SITTING UP IN CHAIR ON MORNING ROUNDS. SHE CONTINUES WITH INTERMITTENT CHEST PAIN AND SHORTNESS OF BREATH, BUT DOES REPORT IMPROVEMENT IN SYMPTOMS SINCE ADMISSION. SHE DENIES LOWER EXTREMITY PAIN THIS MORNING. ON EXAMINATION, HEART IS REGULAR IN RATE AND RHYTHM. BILATERAL LUNGS ARE NOTED WITH DIMINISHED LUNG SOUNDS THROUGHOUT. ABDOMEN IS ROUND, SOFT, AND NON-TENDER WITH NORMAL BOWEL SOUNDS NOTED IN ALL QUADRANTS. LOWER EXTREMITIES ARE NOTED WITH TRACE EDEMA BILATERALLY. HER VITALS THIS MORNING ARE: 98.9-80-20-96%-173/91. LABS WERE OBTAINED. ABNORMAL LAB VALUES INCLUDE THE FOLLOWING: HGB 9.7, HCT 29.6, BUN 26, CREATININE 1.56, GLUCOSE 116, ALBUMIN 3.2. WE OBTAINED CARDIAC ENZYMES YESTERDAY AND THIS MORNING. YESTERDAY MORNING AT 05:12, TROPONIN WAS 88.2. WHEN RECHECKED AT 13:12, TROPONIN HAD INCREASED TO 244.0. THIS MORNING, TROPONIN IS 566.8. AN ECHO WAS OBTAINED YESTERDAY AND REVEALED AN EJECTION FRACTION OF 62%, MILD PULMONARY HTN, RVSP 33mmHg, SEVERE CONCENTRIC HYPERTROPHY OF THE LEFT VENTRICLE. CHEST XRAY WAS OBTAINED THIS MORNING AND REVEALED: Stable cardiomegaly. The lungs are clear except for mild pulmonary vascular congestion none. There is no evidence for pneumonia, pulmonary edema or pleural effusion. SOME CHANGES ARE SEEN ON THE EKGs. IT DOES APPEAR THAT PATIENT IS HAVING AN ACUTE IL. SHE IS CURRENTLY RECEIVING LASIX 40MG IV BID, CATAPRES 0.3MG/HR TD PATCH Q7D, K-DUR 20MG PO BID, HYDRALAZINE 25MG PO TID, ECOTRIN 325MG PO DAILY, PLAVIX 75MG PO DAILY, TYLENOL 650MG PO Q6H PRN. TODAY, WE WILL START A HEPARIN DRIP. WE WILL ALSO ADD METOPROLOL XL 50 MG PO DAILY. WE WILL ATTEMPT TO TRANSFER PATIENT TO TERTIARY CARE FACILITY FOR CARDIAC EVALUATION AND POSSIBLE HEART CATH. - Past Medical Family Social History Past Med/Fam/Surg Hx: No changes since H&P Allergies: Allergies lisinopril Allergy (Verified 10/26/21 21:04) - Review of Systems ROS: No change since H&P - Vital Signs and I&O's Vital Signs: Temperature 98.9 F Pulse Rate [Right Radial] 80 Pulse Rate 93 Respiratory Rate 20 Blood Pressure [Right Arm] 173/91 Blood Pressure [Left Arm] 158/90 Blood Pressure 217/133 O2 Sat by Pulse Oximetry 96 Intake and Output: Intake & Output 10/24/21 10/25/21 10/26/21 10/27/21 11:59 11:59 11:59 11:59 Intake Total 990 / 990 1869 Balance 990 / 990 1869 - Physical Exam Oriented: Normal Eyes: Normal Ear: Normal Nose: Normal Throat: Normal Respiratory: Generalized, Diminished Cardiovascular: Edema (TRACE EDEMA BLE ) : Normal Auscultation: Bowel Sounds: Normal Palpation: Normal Tenderness: Normal Skin: Normal Musculoskeletal: Normal Psychiatric: Normal Mood Description: Calm Affect: Normal Speech Pattern: Clear, Appropriate - Laboratory and Diagnostics Result Diagrams: 10/27/21 05:19 10/27/21 05:19 Labs: Laboratory WBC 7.6 X10^3/uL (3.6-10.0) 10/27/21 05:19 RBC 4.15 X10^6/uL (3.5-5.4) 10/27/21 05:19 Hgb 9.7 g/dL (12.0-16.0) L 10/27/21 05:19 Hct 29.6 % (36.0-47.0) L 10/27/21 05:19 MCV 71.3 fL (80.0-100.0) L 10/27/21 05:19 MCH 23.4 pg (27.0-34.0) L 10/27/21 05:19 MCHC 32.8 g/dL (33.0-35.0) L 10/27/21 05:19 RDW 19.3 % (11.6-16.5) H 10/27/21 05:19 Plt Count 307 X10^3/uL (150.0-450.0) 10/27/21 05:19 Plt Count Comment Adequate (ADEQUATE) 10/27/21 05:19 MPV 8.5 fL (7.4-11.0) 10/27/21 05:19 Neut % (Auto) 72.6 % (42.0-75.0) 10/27/21 05:19 Lymph % (Auto) 18.7 % (21.0-51.0) L 10/27/21 05:19 [place] % (Auto) 7.2 % (0.0-13.0) 10/27/21 05:19 Eos % (Auto) 0.8 % (0.9-2.9) L 10/27/21 05:19 Baso % (Auto) 0.7 % (0.2-1.0) 10/27/21 05:19 Neut # (Auto) 5.5 x10^3/uL (2.2-4.8) H 10/27/21 05:19 Lymph # (Auto) 1.4 X10^3/uL (1.3-2.9) 10/27/21 05:19 [place] # (Auto) 0.5 x10^3/uL (0.3-0.8) 10/27/21 05:19 Eos # (Auto) 0.1 x10^3/uL (0.0-0.2) 10/27/21 05:19 Baso # (Auto) 0.1 X10^3/uL (0.0-0.1) 10/27/21 05:19 Absolute Nucleated RBC 0.1 /100WBC 10/27/21 05:19 Plt Morphology Comment Normal (NORMAL) 10/27/21 05:19 RBC Morphology Abnormal (NORMAL) A 10/27/21 05:19 Hypochromasia 1+ A 10/26/21 05:12 Anisocytosis Slight A 10/27/21 05:19 Microcytosis Slight A 10/27/21 05:19 Target Cells Present 10/27/21 05:19 Ovalocytes Present 10/27/21 05:19 PT 13.9 SECONDS (11.8-14.3) 10/27/21 09:43 INR Target Range - 10/27/21 09:43 INR 1.12 (0.8-1.3) 10/27/21 09:43 APTT 23.9 SECONDS (22.9-36.5) 10/27/21 09:43 PTT Comment - 10/27/21 09:43 Sodium 138 mmol/L (136-145) 10/27/21 05:19 Corrected Sodium 138 mmol/L (136-145) 10/27/21 05:19 Potassium 3.9 mmol/L (3.5-5.1) 10/27/21 05:19 Chloride 104 mmol/L (98-107) 10/27/21 05:19 Carbon Dioxide 24.5 mmol/L (21-32) 10/27/21 05:19 BUN 26 mg/dL (7-18) H 10/27/21 05:19 Creatinine 1.56 mg/dL (0.55-1.02) H 10/27/21 05:19 Est GFR (MDRD) Af Amer 46 (>60) L 10/27/21 05:19 Est GFR (MDRD) Non-Af 38 (>60) L 10/27/21 05:19 Glucose 116 mg/dL (65-99) H 10/27/21 05:19 Calcium 8.6 mg/dL (8.5-10.1) 10/27/21 05:19 Corrected Calcium 9.2 mg/dL (8.5-10.1) 10/27/21 05:19 Magnesium 2.2 mg/dL (1.7-2.9) 10/26/21 05:12 Total Bilirubin 0.80 mg/dL (0.2-1.0) 10/27/21 05:19 AST 23 Units/L (15-37) 10/27/21 05:19 ALT 50 Units/L (12-78) 10/27/21 05:19 Alkaline Phosphatase 94 Units/L (46-116) 10/27/21 05:19 Creatine Kinase 94 Units/L (26-192) 10/27/21 05:19 CK-MB (CK-2) 3.4 ng/mL (0-4.0) 10/27/21 05:19 CK/CKMB % Calc 3.6 % (<4) 10/27/21 05:19 Troponin I High Sens 566.8 ng/L (4.0-60.0) H* 10/27/21 05:19 B-Natriuretic Peptide 555 pg/mL (0-79) H* 10/27/21 05:19 Total Protein 7.1 g/dL (6.4-8.2) 10/27/21 05:19 Albumin 3.2 g/dL (3.4-5.0) L 10/27/21 05:19 Globulin 3.9 g/dL (2.5-4.5) 10/27/21 05:19 Albumin/Globulin Ratio 0.8 Ratio (1.1-2.1) L 10/27/21 05:19 Specimen Type Clean catch urine 10/25/21 23:05 Urine Color Straw (YELLOW) 10/25/21 23:05 Urine Appearance Clear (CLEAR) 10/25/21 23:05 Urine pH 6.5 (5.0 - 8.0) 10/25/21 23:05 Ur Specific [place] 1.010 (1.000-1.030) 10/25/21 23:05 Urine Protein 2+ (NEGATIVE) 10/25/21 23:05 Urine Glucose (UA) Negative (NEGATIVE) 10/25/21 23:05 Urine Ketones Negative (NEGATIVE) 10/25/21 23:05 Urine Occult Blood Negative (NEGATIVE) 10/25/21 23:05 Urine Nitrite Negative (NEGATIVE) 10/25/21 23:05 Urine Bilirubin Negative (NEGATIVE) 10/25/21 23:05 Urine Urobilinogen Normal (NORMAL) 10/25/21 23:05 Ur Leukocyte Esterase Negative (NEGATIVE) 10/25/21 23:05 Urine RBC None seen /HPF (0-3) 10/25/21 23:05 Urine WBC None seen /HPF (0-5) 10/25/21 23:05 Ur Squamous Epith Cells Moderate /HPF (NEGATIVE) 10/25/21 23:05 Urine Bacteria Negative /HPF (NEGATIVE) 10/25/21 23:05 Ur Culture Indicated? No/not indicated 10/25/21 23:05 SARS CoV-2 RNA Rapid MAVERICK Negative (NEGATIVE) 10/25/21 19:22 - Plan (1) Acute IL Status: Acute Qualifiers: Myocardial infarction type: unspecified Involved coronary artery: unspecifi ed coronary artery Qualified Code(s): I21.9 - Acute myocardial infarction, unspecified Plan: HEPARIN DRIP, MONITOR CARDIAC ENZYMES AND EKGS, TRANSFER TO [facility]ERTIARY CARE FACILITY FOR CARDIOLOGY EVALUATION (2) CHF (congestive heart failure) Status: Acute Qualifiers: Heart failure type: combined systolic and diastolic Heart failure chronicity: unspecified Qualified Code(s): I50.40 - Unspecified combined systolic (congestive) and diastolic (congestive) heart failure Plan: LASIX 40MG IV BID, CATAPRES 0.3MG/HR TD PATCH Q7D, K-DUR 20MG PO BID, HYDRALAZINE 25MG PO TID, METOPROLOL XL 50MG PO DAILY, PLAVIX 75MG PO DAILY, TYLENOL 650MG PO Q6H PRN (3) Hypertensive emergency Status: Acute (4) Chest pain Status: Acute Qualifiers: Chest pain type: unspecified Qualified Code(s): R07.9 - Chest pain, unspecified (5) Acute bronchitis Status: Acute Qualifiers: Bronchitis organism: unspecified organism Qualified Code(s): J20.9 - Acute bronchitis, unspecified (6) Swelling of lower extremity Status: Acute
[2021-10-27] MEDS ORDERED: HEPARIN SODIUM INJ 5000 UNITS IVP ONE (12:40)
[2021-10-27 12:45] LABS: CKMB % 4.4 % (<4); CREATINE KINASE MB 3.8 ng/mL (0-4.0)
[2021-10-27 14:07] VITALS: BP 190/103
[2021-10-27] MEDS ORDERED: CRESTOR TAB 10 MG PO SCH (21:00)
--- NOTE | 2021-12-09 14:29 | PCM.PROG ---
Progress Note - Progress Note for Day of Date of Exam: 10/26/21 - Subjective Subjective: WAS ADMITTED FOR TREATMENT OF CHF, HTN, CHEST PAIN RULE OUT ACUTE IA, ACUTE BRONCHITIS, AND SWELLING OF LOWER EXTREMITIES. SHE CONTINUES WITH COMPLAINTS OF SHORTNESS OF BREATH, PRODUCTIVE COUGH, AND LOWER EXTREMITY SWELLING TODAY. SHE DENIES CURRENTLY HAVING ANY CHEST PAIN AND IS NOT IN ANY DISTRESS. ON EXAMINATION, HEART IS REGULAR IN RATE AND RHYTHM. BILATERAL LUNGS NOTED WITH EXPIRATORY WHEEZING. ABDOMEN IS ROUND, SOFT, AND NON-TENDER WITH NORMAL BOWEL SOUNDS NOTED IN ALL QUADRANTS. BLE NOTED WITH TRACE EDEMA. HER VITALS THIS MORNING ARE: 97.8-100-20-96%-164/90. BLOOD PRESSURE HAS REMAINED ELEVATED THROUGHOUT THE NIGHT, WITH SYSTOLIC REMAINING IN THE 200s. LABS WERE OBTAINED. ABNORMAL LAB VALUES INCLUDE THE FOLLOWING: HGB 9.7, HCT 29.6, BUN 24, CREATININE 1.50, GLUCOSE 106, CALCIUM 8.4. HER TROPONIN THIS MORNING WAS ELEVATED AT 88.8. EKG OBTAINED AT 05:16 THIS MORNING REVEALED SINUS RHYTHM WITH HR 90. SHE IS CURRENTLY RECEIVING SHE IS CURRENTLY RECEIVING LASIX 40MG IV BID, CATAPRES 0.3MG/HR TD PATCH Q7D, K-DUR 20MG PO BID, HYDRALAZINE 25MG PO TID, TYLENOL 650MG PO Q6H PRN. WE WILL REPEAT SERIAL CARDIAC ENZYMES AND EKGS TODAY. WE WILL OBTAIN BLE VENOUS DOPPLERS AND AN ECHOCARDIOGRAM. WE WILL ALSO OBTAINE SERIAL CARDIAC ENZYMES AND EKG TO RULE OUT ACUTE IA. WE WILL ADD LISINOPRIL 10MG PO BID FOR ELEVATED BLOOD PRESSURE. OTHERWISE, WE PLAN TO FOLLOW UP WITH AM LABS AND CONTINUE TO MONITOR. TIME SPENT ON CLINICAL ASSESSMENT, REVIEWING LABS AND IMAGING, DECISION MAKING, AND DOCUMENTATION GREATER THAN 45 MINUTES. - Past Medical Family Social History Past Med/Fam/Surg Hx: No changes since H&P Allergies: Allergies lisinopril Allergy (Verified 10/26/21 21:04) - Review of Systems ROS: No change since H&P - Vital Signs and I&O's Vital Signs: Temperature 98.1 F Pulse Rate [Right Radial] 84 Pulse Rate 93 Respiratory Rate 28 Blood Pressure [Right Arm] 190/103 Blood Pressure [Left Arm] 158/90 Blood Pressure 217/133 O2 Sat by Pulse Oximetry 96 - Physical Exam Oriented: Normal Eyes: Normal Ear: Normal Nose: Normal Throat: Normal Respiratory: Generalized, Diminished Cardiovascular: Edema (TRACE EDEMA BLE ) : Normal Auscultation: Bowel Sounds: Normal Tenderness: Normal Skin: Normal Musculoskeletal: Normal Psychiatric: Normal Mood Description: Calm Affect: Normal Speech Pattern: Clear, Appropriate - Laboratory and Diagnostics Result Diagrams: 10/27/21 05:19 10/27/21 05:19 Labs: Laboratory WBC 7.6 X10^3/uL (3.6-10.0) 10/27/21 05:19 RBC 4.15 X10^6/uL (3.5-5.4) 10/27/21 05:19 Hgb 9.7 g/dL (12.0-16.0) L 10/27/21 05:19 Hct 29.6 % (36.0-47.0) L 10/27/21 05:19 MCV 71.3 fL (80.0-100.0) L 10/27/21 05:19 MCH 23.4 pg (27.0-34.0) L 10/27/21 05:19 MCHC 32.8 g/dL (33.0-35.0) L 10/27/21 05:19 RDW 19.3 % (11.6-16.5) H 10/27/21 05:19 Plt Count 307 X10^3/uL (150.0-450.0) 10/27/21 05:19 Plt Count Comment Adequate (ADEQUATE) 10/27/21 05:19 MPV 8.5 fL (7.4-11.0) 10/27/21 05:19 Neut % (Auto) 72.6 % (42.0-75.0) 10/27/21 05:19 Lymph % (Auto) 18.7 % (21.0-51.0) L 10/27/21 05:19 [place] % (Auto) 7.2 % (0.0-13.0) 10/27/21 05:19 Eos % (Auto) 0.8 % (0.9-2.9) L 10/27/21 05:19 Baso % (Auto) 0.7 % (0.2-1.0) 10/27/21 05:19 Neut # (Auto) 5.5 x10^3/uL (2.2-4.8) H 10/27/21 05:19 Lymph # (Auto) 1.4 X10^3/uL (1.3-2.9) 10/27/21 05:19 [place] # (Auto) 0.5 x10^3/uL (0.3-0.8) 10/27/21 05:19 Eos # (Auto) 0.1 x10^3/uL (0.0-0.2) 10/27/21 05:19 Baso # (Auto) 0.1 X10^3/uL (0.0-0.1) 10/27/21 05:19 Absolute Nucleated RBC 0.1 /100WBC 10/27/21 05:19 Plt Morphology Comment Normal (NORMAL) 10/27/21 05:19 RBC Morphology Abnormal (NORMAL) A 10/27/21 05:19 Hypochromasia 1+ A 10/26/21 05:12 Anisocytosis Slight A 10/27/21 05:19 Microcytosis Slight A 10/27/21 05:19 Target Cells Present 10/27/21 05:19 Ovalocytes Present 10/27/21 05:19 PT 13.9 SECONDS (11.8-14.3) 10/27/21 09:43 INR Target Range - 10/27/21 09:43 INR 1.12 (0.8-1.3) 10/27/21 09:43 APTT 23.9 SECONDS (22.9-36.5) 10/27/21 09:43 PTT Comment - 10/27/21 09:43 Sodium 138 mmol/L (136-145) 10/27/21 05:19 Corrected Sodium 138 mmol/L (136-145) 10/27/21 05:19 Potassium 3.9 mmol/L (3.5-5.1) 10/27/21 05:19 Chloride 104 mmol/L (98-107) 10/27/21 05:19 Carbon Dioxide 24.5 mmol/L (21-32) 10/27/21 05:19 BUN 26 mg/dL (7-18) H 10/27/21 05:19 Creatinine 1.56 mg/dL (0.55-1.02) H 10/27/21 05:19 Est GFR (MDRD) Af Amer 46 (>60) L 10/27/21 05:19 Est GFR (MDRD) Non-Af 38 (>60) L 10/27/21 05:19 Glucose 116 mg/dL (65-99) H 10/27/21 05:19 Calcium 8.6 mg/dL (8.5-10.1) 10/27/21 05:19 Corrected Calcium 9.2 mg/dL (8.5-10.1) 10/27/21 05:19 Magnesium 2.2 mg/dL (1.7-2.9) 10/26/21 05:12 Total Bilirubin 0.80 mg/dL (0.2-1.0) 10/27/21 05:19 AST 23 Units/L (15-37) 10/27/21 05:19 ALT 50 Units/L (12-78) 10/27/21 05:19 Alkaline Phosphatase 94 Units/L (46-116) 10/27/21 05:19 Creatine Kinase 86 Units/L (26-192) 10/27/21 11:47 CK-MB (CK-2) 3.8 ng/mL (0-4.0) 10/27/21 11:47 CK/CKMB % Calc 4.4 % (<4) 10/27/21 11:47 Troponin I High Sens 572.6 ng/L (4.0-60.0) H* 10/27/21 11:47 B-Natriuretic Peptide 555 pg/mL (0-79) H* 10/27/21 05:19 Total Protein 7.1 g/dL (6.4-8.2) 10/27/21 05:19 Albumin 3.2 g/dL (3.4-5.0) L 10/27/21 05:19 Globulin 3.9 g/dL (2.5-4.5) 10/27/21 05:19 Albumin/Globulin Ratio 0.8 Ratio (1.1-2.1) L 10/27/21 05:19 Specimen Type Clean catch urine 10/25/21 23:05 Urine Color Straw (YELLOW) 10/25/21 23:05 Urine Appearance Clear (CLEAR) 10/25/21 23:05 Urine pH 6.5 (5.0 - 8.0) 10/25/21 23:05 Ur Specific [place] 1.010 (1.000-1.030) 10/25/21 23:05 Urine Protein 2+ (NEGATIVE) 10/25/21 23:05 Urine Glucose (UA) Negative (NEGATIVE) 10/25/21 23:05 Urine Ketones Negative (NEGATIVE) 10/25/21 23:05 Urine Occult Blood Negative (NEGATIVE) 10/25/21 23:05 Urine Nitrite Negative (NEGATIVE) 10/25/21 23:05 Urine Bilirubin Negative (NEGATIVE) 10/25/21 23:05 Urine Urobilinogen Normal (NORMAL) 10/25/21 23:05 Ur Leukocyte Esterase Negative (NEGATIVE) 10/25/21 23:05 Urine RBC None seen /HPF (0-3) 10/25/21 23:05 Urine WBC None seen /HPF (0-5) 10/25/21 23:05 Ur Squamous Epith Cells Moderate /HPF (NEGATIVE) 10/25/21 23:05 Urine Bacteria Negative /HPF (NEGATIVE) 10/25/21 23:05 Ur Culture Indicated? No/not indicated 10/25/21 23:05 SARS CoV-2 RNA Rapid MAVERICK Negative (NEGATIVE) 10/25/21 19:22 - Plan (1) Acute IA Status: Acute Qualifiers: Myocardial infarction type: unspecified Involved coronary artery: unspecified coronary artery Qualified Code(s): I21.9 - Acute myocardial infarction, unspecified (2) CHF (congestive heart failure) Status: Acute Qualifiers: Heart failure type: combined systolic and diastolic Heart failure chronicity: unspecified Qualified Code(s): I50.40 - Unspecified combined systolic (congestive) and diastolic (congestive) heart failure Plan: LASIX 40MG IV BID, CATAPRES 0.3MG/HR TD PATCH Q7D, K-DUR 20MG PO BID, LISINOPRIL 10MG PO BID, TYLENOL 650MG PO Q6H PRN (3) Hypertensive emergency Status: Acute (4) Chest pain Status: Acute Qualifiers: Chest pain type: unspecified Qualified Code(s): R07.9 - Chest pain, unspecified (5) Acute bronchitis Status: Acute Qualifiers: Bronchitis organism: unspecified organism Qualified Code(s): J20.9 - Acute bronchitis, unspecified (6) Swelling of lower extremity Status: Acute Plan: OBTAIN VENOUS DOPPLER
== END 2021-10-27 16:25 | disposition short-term general hospital (02) ==
LOC: ER 13:04 → INTOOBSV 21:22 → MED/SURG 21:22
PROVIDERS: ADMIT Internal Medicine; ATTEND Internal Medicine
DX: I21.9 Acute myocardial infarction, unspecified; R94.31 Abnormal electrocardiogram [ECG] [EKG]; I11.0 Hypertensive heart disease with heart failure; I16.1 Hypertensive emergency; R60.0 Localized edema; Z20.822 Contact with and (suspected) exposure to COVID-19; E03.8 Other specified hypothyroidism; J20.8 Acute bronchitis due to other specified organisms; R07.82 Intercostal pain; R06.02 Shortness of breath; I50.40 Unspecified combined systolic (congestive) and diastolic (congestive) heart failure